=== PATIENT | female | born 1970 | race Two or more races ===

== ENCOUNTER 2018-11-30 14:21 | Day surgery (SDC) | payer OTHER ==
[~2018-11-30 14:21] MED LIST: EPHEDrine 50 MG INJ; PROPOFOL 200 MG INJ; ROCURONIUM 50 MG INJ; SEVOFLURANE 15 MIN
[2018-11-30] MEDS ORDERED: FENTAnyl 50 MCG/ML VIAL ×2 (16:16→21:07)
[2018-11-30] MEDS ORDERED: ROPIVACAINE 0.5 % 30 ML VIAL (16:16)
[2018-11-30] MEDS ORDERED: MIDAZOLAM 1 MG/ML 2 ML INJ (16:16)
[2018-11-30] MEDS ORDERED: ONDANSETRON 4 MG INJ (19:24)
[2018-11-30] MEDS ORDERED: METOCLOPRAMIDE 10 MG INJ (19:24)
[2018-11-30] MEDS ORDERED: DEXAMETHASONE 4 MG/ML 5 ML INJ (19:25)
[2018-11-30] MEDS ORDERED: KETOROLAC 30 MG INJ (19:25)
[2018-11-30] MEDS ORDERED: ONDANSETRON 4 MG INJ IV (21:30)
[2018-11-30] MEDS ORDERED: METOCLOPRAMIDE 10 MG INJ IV (21:30)
[2018-11-30] MEDS ORDERED: EPHEDrine SULFATE 50 MG/5 ML SYG IV (21:30)
[2018-11-30] MEDS ORDERED: DIPHENHYDRAMINE 50 MG INJ IV (21:30)
[2018-11-30] MEDS ORDERED: FENTAnyl 50 MCG/ML VIAL IV ×3 (21:30)
[2018-11-30] MEDS ORDERED: MEPERIDINE 25 MG INJ IV (21:30)
[2018-11-30] MEDS ORDERED: OXYCODONE/ACETAMINOPHEN (5/325) TAB PO ×2 (21:30)
[2018-11-30] MEDS ORDERED: hydrALAzine 20 MG INJ IV (21:30)
[2018-11-30] MEDS ORDERED: HYDROmorphONE 1 MG/5 ML IV SYRINGE IV ×3 (21:30)
[2018-11-30] MEDS ORDERED: LABETALOL HCL 20MG INJ IV (21:30)
[2018-11-30] MEDS ORDERED: CEFAZOLIN 1 GM INJ (21:49)
[2018-11-30] MEDS ORDERED: NEOMYC/POLYMYX/BACIT 30 GM OINT (22:01)
[2018-11-30] MEDS ORDERED: NEOSTIGMINE 3 MG/3 ML SYRINGE (22:05)
[2018-11-30] MEDS ORDERED: GLYCOPYRROLATE 0.4 MG INJ (22:05)
[2018-11-30] MEDS: POLYMYXIN/BACITRACIN 1L IRRIG IRR (22:39)
[2018-11-30] MEDS ORDERED: morphine 2 MG INJ IV (23:00)
[2018-11-30] MEDS: KETOROLAC 30 MG INJ IV (23:39)
== END 2018-12-01 | disposition home or self-care (01) ==
LOC: SDS 12-01
DX: S82.871D Displaced pilon fracture of right tibia, subsequent encounter for closed fracture with routine healing (principal); X58.XXXD Exposure to other specified factors, subsequent encounter; M65.871 Other synovitis and tenosynovitis, right ankle and foot
CPT/HCPCS: 29892; 73610-RT; 82306; 84703